=== PATIENT | female | born 1965 | race Caucasian/White ===

== ENCOUNTER 2023-06-30 21:29 | Observation (INO) | payer BC ==
[2023-06-30 22:33] LABS: #Basophils 0.03 10x3/uL (0.0-0.2); %Basophils 0.7 % (0.0-1.0); %Eosinophils 1.4 % (0.0-10.0); %Lymphocytes 25.4 % (21.0-51.0); %Monocytes 13.7 % (0.0-10.0); %Neutrophils 58.3 % (42.0-75.0); Hematocrit 27.5 % (36.0-47.0); Hemoglobin 8.8 g/dL (12.0-16.0); Mean Corpuscular Hemoglobin 26.3 pg (27.0-31.0); Mean Corpuscular Volume 82.3 fL (78.0-98.0); Mean Platelet Volume 10.5 fL (7.4-10.4); Platelet Count 130 10x3/uL (130-400); RBC Distribution Width 20.7 % (11.5-14.5); Red Blood Cell (RBC) Count 3.34 mill/uL (4.20-5.40)
[2023-06-30 22:51] LABS: ALT (SGPT) 17 U/L (8-55); AST (SGOT) 39 U/L (5-34); Albumin 2.8 g/dL (3.5-5.0); Alkaline Phosphatase 252 U/L (40-110); Anion Gap 13 mmol/L (10-20); BUN (Urea Nitrogen) 14 mg/dL (9.8-20.1); Calc. Creatinine Clearance 0 mL/min (70-130); Calcium 8.7 mg/dL (7.8-10.44); Carbon Dioxide 22 mmol/L (22-29); Chloride 104 mmol/L (98-107); Estimated GFR 56; Glucose 265 mg/dL (70-105); Lipase 37 U/L (8-78); Potassium 3.8 mmol/L (3.5-5.1); Protein, Total 6.8 g/dL (6.0-8.3); Sodium 135 mmol/L (136-145)
[2023-06-30 22:54] LABS: Troponin I 0.026 ng/mL (< 0.028)
[2023-06-30] MEDS ORDERED: Glucagon 1 MG/ML KIT IM PRN (23:13)
[2023-06-30] MEDS ORDERED: Ondansetron PF 4 MG/2 ML Vial IVP PRN (23:13)
[2023-06-30] MEDS ORDERED: Dextrose 50% Abboject 50 ML SYRINGE SLOW IVP PRN (23:13)
[2023-06-30] MEDS ORDERED: Dextrose 5% in Water 1,000 ML IV PRN (23:13)
[2023-06-30] MEDS ORDERED: Acetaminophen 325 MG TAB PO PRN (23:13)
[2023-06-30] MEDS ORDERED: HumaLOG 300 UNITS/3 ML VIAL SC PRN ×2 (23:13)
[2023-06-30] MEDS ORDERED: Ondansetron PF 4 MG/2 ML Vial ONE (23:27)
[2023-06-30] MEDS ORDERED: Lactulose 20 GM (30 mL) UDCUP ONE (23:48)
[2023-07-01 01:00] VITALS: BMI 23.5
[2023-07-01 04:19] LABS: #Basophils 0.04 10x3/uL (0.0-0.2); %Basophils 1.1 % (0.0-1.0); %Eosinophils 0.8 % (0.0-10.0); %Neutrophils 50.8 % (42.0-75.0); Hematocrit 25.5 % (36.0-47.0); Hemoglobin 8.2 g/dL (12.0-16.0); Mean Corpuscular HGB CONC 32.2 g/dL (32.0-36.0); Mean Corpuscular Hemoglobin 26.4 pg (27.0-31.0); Mean Platelet Volume 10.8 fL (7.4-10.4); Platelet Count 112 10x3/uL (130-400); Red Blood Cell (RBC) Count 3.11 mill/uL (4.20-5.40)
[2023-07-01 04:35] LABS: Troponin I 0.032 ng/mL (< 0.028)
[2023-07-01 04:36] LABS: ALT (SGPT) 16 U/L (8-55); AST (SGOT) 34 U/L (5-34); Albumin 2.4 g/dL (3.5-5.0); Alkaline Phosphatase 214 U/L (40-110); Anion Gap 13 mmol/L (10-20); BUN (Urea Nitrogen) 13 mg/dL (9.8-20.1); Bilirubin, Total 1.6 mg/dL (0.2-1.2); Calc. Creatinine Clearance 65 mL/min (70-130); Calcium 8.5 mg/dL (7.8-10.44); Carbon Dioxide 20 mmol/L (22-29); Chloride 109 mmol/L (98-107); Estimated GFR 68; Globulin 3.9 g/dL (2.4-3.5); Glucose 176 mg/dL (70-105); Potassium 3.3 mmol/L (3.5-5.1); Protein, Total 6.3 g/dL (6.0-8.3); Sodium 139 mmol/L (136-145)
[2023-07-01 08:10] LABS: Troponin I 0.023 ng/mL (< 0.028)
[2023-07-01] MEDS ORDERED: Pantoprazole DR 40 MG TAB PO SCH (09:00)
[2023-07-01] MEDS ORDERED: Aspirin 81 mg Enteric Coated Tablet PO SCH (09:00)
[2023-07-01] MEDS ORDERED: Clopidogrel Bisulfate 75 MG TAB PO SCH (09:00)
[2023-07-01] MEDS: Lactulose 20 GM (30 mL) UDCUP PO SCH (10:00)
[2023-07-01] MEDS: Pantoprazole DR 40 MG TAB PO SCH (10:00)
[2023-07-01] MEDS: Rifaximin 550 MG TAB PO SCH (10:00)
[2023-07-01] MEDS: Propranolol 10 MG TAB PO SCH (10:01)
[2023-07-01] MEDS: Ursodiol 300 MG CAP PO SCH (10:01)
[2023-07-01] MEDS: Atorvastatin Calcium 20 MG TAB PO SCH (10:01)
[2023-07-01] MEDS: Aspirin 81 mg Enteric Coated Tablet PO SCH (10:01)
[2023-07-01] MEDS: Clopidogrel Bisulfate 75 MG TAB PO SCH (10:02)
[2023-07-01 11:20] VITALS: BP 126/60; TEMP 98.7
== END 2023-07-01 11:20 | disposition home or self-care (01) ==
LOC: ERS 21:29 → 2NO 23:25
PROVIDERS: ADMIT Student in an Organized Health Care Education/Training Program; ATTEND Internal Medicine
DX: K76.82 Hepatic encephalopathy (principal); R41.82 Altered mental status, unspecified; I25.10 Atherosclerotic heart disease of native coronary artery without angina pectoris; K75.81 Nonalcoholic steatohepatitis (NASH); E11.9 Type 2 diabetes mellitus without complications; I10 Essential (primary) hypertension; R79.89 Other specified abnormal findings of blood chemistry; E78.5 Hyperlipidemia, unspecified; K74.69 Other cirrhosis of liver; Z90.710 Acquired absence of both cervix and uterus; Z90.49 Acquired absence of other specified parts of digestive tract; Z96.652 Presence of left artificial knee joint; Z95.5 Presence of coronary angioplasty implant and graft; Z79.899 Other long term (current) drug therapy; Z79.82 Long term (current) use of aspirin
CPT/HCPCS: 36415; 36416; 70450; 80053; 82140; 83690; 84484; 85025; 93005; G0378; J2405